=== PATIENT | male | born 1990 | race Caucasian/White ===

== ENCOUNTER 2018-04-21 18:01 | Emergency (ER) | payer MEDICAID ==
[2018-04-21 18:12] VITALS: BP 121/64; PULSE 65; RESP 16; TEMP 98.8; O2SAT 98
[2018-04-21] MEDS ORDERED: Tdap Vaccine 0.5 ml Vial (10-64 yrs) IM ONE (18:51)
[2018-04-21] MEDS ORDERED: Amoxicillin-Clav 875-125 mg Tab PO STA (18:51)
[2018-04-21] MEDS ORDERED: Tetanus/Diphtheria Toxoids 0.5 ml Syringe IM ONE (19:08)
[2018-04-21] MEDS ORDERED: Amoxicillin-Clav 875-125 mg Tab PO ONE (19:08)
--- NOTE | 2018-04-21 19:24 | C.PDOC ---
History Of Present Illness 28-year-old male presents to the ED for evaluation after he sustained a dog bite to the back of his right leg around 5 days ago. As per patient, the dog airplane tester states the animal is up-to-date with immunizations. Patient has been cleaning and applying ointment to the area. He states symptoms have improved and denies fever, chills, draining or swelling from the area. Patient is not UTD with Tetanus immunization. Time Seen by Provider: 04/21/18 18:30 Chief Complaint (Nursing): Abnormal Skin Integrity History Per: Patient History/Exam Limitations: no limitations Current Symptoms Are (Timing): Better Location Of Injury: Right: Leg Quality Of Symptoms: denies: Painful, Itching, Swollen, Draining Additional History Per: Patient - Animal Bite Reports Animal's Immunization Status: UTD Past Medical History Reviewed: Historical Data, Nursing Documentation, Vital Signs Vital Signs: Last Vital Signs Temp 98.8 F 04/21/18 18:10 Pulse 65 04/21/18 18:10 Resp 16 04/21/18 18:10 BP 121/64 04/21/18 18:10 Pulse Ox 98 04/21/18 19:53 - Medical History PMH: No Chronic Diseases Surgical History: No Surg Hx - [facility] Procedures CLOSURE SKIN & SUBCUTANEOUS NEC (11/17/14) LINEAR REP LID LACER (11/17/14) Family History: States: Unknown Family Hx - Social History Hx Tobacco Use: No Hx Alcohol Use: No Hx Substance Use: No - Immunization History Hx Tetanus Toxoid Vaccination: No Hx Influenza Vaccination: No Hx Pneumococcal Vaccination: No Review Of Systems Skin: Positive for: Other (dog bite to right leg ) Physical Exam - Physical Exam Appears: Non-toxic, No Acute Distress Skin: Normal Color, Warm, Dry, Other (four healing bite sosa to right posterior thigh. no signs of infection ) Head: Atraumatic, Normacephalic Eye(s): bilateral: Normal Inspection Oral Mucosa: Moist Neck: Normal ROM, Supple Extremity: Normal ROM, No Tenderness, No Swelling Neurological/Psych: Oriented x3, Normal Speech, Normal Cognition Gait: Steady ED Course And Treatment O2 Sat by Pulse Oximetry: 98 (on RA) Pulse Ox Interpretation: Normal Medical Decision Making Medical Decision Making: Progress: Augmentin PO and Tetanus IM administered. Disposition - Disposition Referrals: Gilbert Cruz MD [Medical Doctor] - Disposition: HOME/ ROUTINE Disposition Time: 19:21 Condition: GOOD Additional Instructions: Take medications until completed Prescriptions: Amoxicillin/Clavulanate [Augmentin 875 MG-125 MG] 1 tab PO BID #14 tab Instructions: Animal Bites (DC) Forms: [employer] (Kazakh) - Clinical Impression Clinical Impression: Dog bite - PA / [employer] / Resident Statement MD/DO has reviewed & agrees with the documentation as recorded. - Scribe Statement The provider has reviewed the documentation as recorded by the Scribe (Marce Mejia) All medical record entries made by the Scribe were at my direction and personally dictated by me. I have reviewed the chart and agree that the record accurately reflects my personal performance of the history, physical exam, medical decision making, and the department course for this patient. I have also personally directed, reviewed, and agree with the discharge instructions and disposition.
== END 2018-04-21 19:38 | disposition home or self-care (01) ==
LOC: C.ER 18:01
DX: S81.851A Open bite, right lower leg, initial encounter (principal); W54.0XXA Bitten by dog, initial encounter; Z23 Encounter for immunization